=== PATIENT | female | born 1945 | race Caucasian/White ===

== ENCOUNTER → 2023-07-19 11:15 | Outpatient (CLI) | payer MEDICARE, SELFPAY ==
[2023-07-19 12:03] LABS: Add Manual Diff / Slide Review NO; Basophils Absolute Auto 0 /uL (0-100); Basophils Percent Auto 0.3 % (0-2); Eosinophils Absolute Auto 0 /uL (0-450); Eosinophils Percent Auto 0.5 % (2-4); Hematocrit 45.1 % (36-46); Hemoglobin 15.4 g/dL (12.0-16.0); Lymphocytes Absolute Auto 1700 /uL (1100-4500); Lymphocytes Percent Auto 21.5 % (25-40); Mean Corpuscular HGB Conc 34.1 % (30-36); Mean Corpuscular Hemoglobin 32.7 PG (26-34); Mean Corpuscular Volume 95.9 fL (80-100); Monocytes Absolute Auto 800 /uL (0-900); Monocytes Percent Auto 9.8 % (3-14); Neutrophils Absolute Auto 5200 /uL (1500-7000); Neutrophils Percent Auto 67.9 % (50-75); Platelet Count 230 X10^3/uL (150-400); Red Cell Distribution Width 14.3 % (11.6-14.8); White Blood Cell Count 7.7 X10^3/uL (4.5-11.0)
[2023-07-19 12:19] LABS: Alanine Aminotransferase 18 IU/L (<35); Albumin Globulin Ratio 1.4 (1.0-2.8); Alkaline Phosphatase 100 U/L (38-126); Aspartate Aminotransferase 28 IU/L (14-36); BUN Creatinine Ratio 35.2 (6-22); Bilirubin Total 0.9 mg/dL (0.2-1.3); Blood Urea Nitrogen 19 mg/dL (7-17); Calcium 8.2 mg/dL (8.4-10.2); Carbon Dioxide 26 mmol/L (22-32); Chloride 109 mmol/L (98-107); Estimated Glomerular Filt Rate > 60 mL/min (>60); Globulin 2.8 g/dL (1.7-4.1); Glucose 94 mg/dL (80-110); HEMOLYSIS < 15 (0-50); Potassium 3.9 mmol/L (3.4-5.1); Sodium 139 mmol/L (137-145); Total Protein 6.8 g/dL (6.3-8.2)
[2023-07-19 12:20] LABS: HEMOLYSIS < 15 (0-50); Iron 125 ug/dL (37-170)
[2023-07-19 12:31] LABS: Percent Iron Saturation 34 % (15-50); Total Iron Binding Capacity 372 ug/dL (265-497); Transferrin 292 mg/dL (206-381)
[2023-07-19 12:38] LABS: Free T4, Direct Thyroxine 1.16 ng/dL (0.78-2.19)
[2023-07-19 12:52] LABS: Thyroid Stimulating Hormone 1.37 uIU/mL (0.47-4.68)
[2023-07-19 12:55] LABS: Ferritin 69 ng/mL (11-264)
[2023-07-19 13:08] LABS: Hep C Virus Ab w/Reflex Quant NEGATIVE s/c (NEGATIVE)
[2023-07-19 18:27] LABS: Creatinine Urine Random 81.59 mg/dL
== END ==
PROVIDERS: PCP Nurse Practitioner; Referring Provider Nurse Practitioner; Visit Provider Nurse Practitioner
DX: Z13.1 Encounter for screening for diabetes mellitus (principal); E83.119 Hemochromatosis, unspecified; E78.5 Hyperlipidemia, unspecified; Z13.220 Encounter for screening for lipoid disorders; Z13.6 Encounter for screening for cardiovascular disorders; Z11.59 Encounter for screening for other viral diseases; M81.0 Age-related osteoporosis without current pathological fracture
CPT/HCPCS: 36415; 80053; 82043; 82570; 82728; 83540; 83550; 84439; 84443; 84481; 85025; 86803

== ENCOUNTER → 2023-07-21 14:51 | Outpatient (CLI) | payer MEDICARE, SELFPAY ==
--- NOTE | 2023-07-21 14:53 | DI.MG.S_ITS ---
BILATERAL DIGITAL SCREENING MAMMOGRAM 3D/2D WITH CAD: 07/21/2023 CLINICAL: Baseline exam. Routine screening. Family hsitory of Breast cancer. No prior exams were available for comparison. Both breasts are heterogeneously dense, which may obscure small masses (category c / 51-75% glandular tissue). Current study was also evaluated with a Computer Aided Detection (CAD) system. There are benign vascular calcifications in both breasts. No significant masses, calcifications, or other findings are seen in either breast. IMPRESSION: BENIGN There is no mammographic evidence of malignancy. A 1 year screening mammogram is recommended. Based on the Tyrer Cuzick model (a risk assessment model) the patient's lifetime risk is 7.1% and her 10 year risk is 0.0%. According to the ACR, ACS, and NCCN guidelines, an annual breast MRI exam along with mammogram is recommended if the patient's lifetime risk is 20% or greater. This exam was interpreted at Station ID: [id number]. NOTE: For mammograms, a report in lay terms will be sent to the patient. Approximately 15% of breast malignancies will not be visualized mammographically. In the management of a palpable breast mass, a negative mammogram must not discourage biopsy of a clinically suspicious lesion. Electronically Signed By: Farhad [email or web address]:07/21/2023 16:02:09 letter sent: Normal Exam ACR BI-RADS Category 2: Benign Finding(s) [id number]
== END ==
PROVIDERS: PCP Nurse Practitioner; Referring Provider Nurse Practitioner; Visit Provider Nurse Practitioner
DX: Z12.31 Encounter for screening mammogram for malignant neoplasm of breast (principal); Z80.3 Family history of malignant neoplasm of breast; R92.333 Mammographic heterogeneous density, bilateral breasts
CPT/HCPCS: 77063; 77067

== ENCOUNTER → 2023-08-10 15:01 | Outpatient (CLI) | payer MEDICARE, OTHER, SELFPAY ==
--- NOTE | 2023-08-10 15:30 | DI.RAD.S_ITS ---
PROCEDURE: XR LUMBAR SPINE 2-3V INDICATIONS: HIP PAIN TECHNIQUE: 3 views of the lumbar spine were acquired. COMPARISON: None. FINDINGS: Bones: 5 [id number]-[id number]-fldkjpt vertebrae are present. Lumbar levoconvex scoliosis. Grade 1 anterolisthesis of L4 on L5. No vertebral body compression fractures. No suspicious bony lesions. Multilevel disc height loss, endplate sclerosis and osteophytosis. Multilevel facet arthropathy. Soft tissues: Overlying bowel gas pattern is normal. No suspicious soft tissue calcifications. IMPRESSION: No acute bony abnormality Approved by: Barbara Amador M.D.,Ph.D. on 08/12/2023 at 13:22 . Multilevel degenerative changes. Grade 1 anterolisthesis of L4 on L5.
--- NOTE | 2023-08-10 15:30 | DI.RAD.S_ITS ---
PROCEDURE: XR SACRUM COCCYX MIN 2V INDICATIONS: HIP PAIN TECHNIQUE: 3 views of the sacrum and coccyx acquired. COMPARISON: None. FINDINGS: Bones: No fractures or dislocations. Degenerative disc disease in visualized lower lumbar spine is seen. Grade 1 anterolisthesis of L4 on L5 is noted. Bilateral sacroiliac joint osteoarthritic changes are seen. No ankylosis or erosion. No suspicious bony lesions. Soft tissues: Visualized bowel gas pattern is normal. No suspicious soft tissue densities. IMPRESSION: 1. No acute sacral or coccygeal fracture. Bilateral sacroiliac joint osteoarthritis, no bony erosion or ankylosis. 2. 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 Grade 1 anterolisthesis of L4 on L5. No acute vertebral body compression fracture. Dictated by: Jaswant Denton M.D. on 08/10/2023 at 18:07 Approved by: Jaswant Denton M.D. on 08/10/2023 at 18:08
[2023-08-10 17:33] LABS: Calcium 9.5 mg/dL (8.4-10.2)
== END ==
LOC: RAD 15:02 → LAB 15:04
PROVIDERS: PCP Nurse Practitioner; Referring Provider Physician Assistant; Visit Provider Physician Assistant
DX: E83.51 Hypocalcemia (principal)
CPT/HCPCS: 36415; 72100; 72220; 82310

== ENCOUNTER → 2024-07-23 08:19 | Outpatient (CLI) | payer MEDICARE, SELFPAY ==
--- NOTE | 2024-07-23 08:22 | DI.MG.S_ITS ---
MM screening mammo BI: 07/23/2024. BI-RADS: 2 CLINICAL: 79-year old female for bilateral screening mammogram. Tyrer-Cuzick lifetime risk of 4.6%. Current reported family history of breast cancer: mother. PRIOR EXAMS 07/21/2023. MAMMOGRAPHY TECHNIQUE: 2D and 3D (tomosynthesis) digital mammographic views obtained, with additional images as needed for full coverage. Current study was also evaluated with a Computer Aided Detection (CAD) system. DENSITY C. The breasts are heterogeneously dense, which may obscure small masses. MAMMOGRAPHY FINDINGS Bilateral: Benign-appearing calcifications noted. Typically-benign vascular calcifications also noted. No significant change from comparison. IMPRESSION: * No evidence of malignancy with benign findings. RECOMMENDATIONS Bilateral * Annual screening mammography. OVERALL ASSESSMENT CATEGORY BI-RADS-2: Benign. The [employer] recommends annual screening mammography beginning at age 40 for women with average risk of breast cancer. ELECTRONICALLY SIGNED: Sheree Caruso M.D. on 07/23/2024 at 04:20:54 PM PT Interpreting Station ID: [id number]
[2024-07-23 10:03] LABS: Add Manual Diff / Slide Review NO; Basophils Absolute Auto 0 /uL (0-100); Basophils Percent Auto 0.5 % (0-2); Eosinophils Absolute Auto 200 /uL (0-450); Eosinophils Percent Auto 2.3 % (2-4); Hematocrit 47.2 % (36-46); Hemoglobin 16.3 g/dL (12.0-16.0); Lymphocytes Absolute Auto 1800 /uL (1100-4500); Lymphocytes Percent Auto 25.2 % (25-40); Mean Corpuscular HGB Conc 34.5 % (30-36); Mean Corpuscular Volume 95.6 fL (80-100); Monocytes Absolute Auto 900 /uL (0-900); Monocytes Percent Auto 12.7 % (3-14); Neutrophils Absolute Auto 4100 /uL (1500-7000); Neutrophils Percent Auto 59.3 % (50-75); Platelet Count 182 X10^3/uL (150-400); Red Blood Cell Count 4.94 X10^6/uL (4.0-5.2); Red Cell Distribution Width 13.7 % (11.6-14.8)
[2024-07-23 10:29] LABS: Alanine Aminotransferase 19 IU/L (<35); Albumin 4.3 g/dL (3.5-5.0); Albumin Globulin Ratio 1.3 (1.0-2.8); Alkaline Phosphatase 111 U/L (38-126); Aspartate Aminotransferase 30 IU/L (14-36); BUN Creatinine Ratio 37.3 (6-22); Bilirubin Total 1.3 mg/dL (0.2-1.3); Blood Urea Nitrogen 25 mg/dL (7-17); Calcium 9.5 mg/dL (8.4-10.2); Carbon Dioxide 26 mmol/L (22-32); Chloride 105 mmol/L (98-107); Cholesterol 219 mg/dL (140-199); Estimated Glomerular Filt Rate > 60 mL/min (>60); Globulin 3.2 g/dL (1.7-4.1); Glucose 102 mg/dL (70-99); HDL Cholesterol 46 mg/dL (40-60); HEMOLYSIS < 15 (0-50); LDL Cholesterol Calculated 154 mg/dL (<100); Potassium 4.3 mmol/L (3.4-5.1); Sodium 139 mmol/L (137-145); Total Protein 7.5 g/dL (6.3-8.2); Triglycerides 96 mg/dL (35-150)
[2024-07-23 10:46] LABS: Vitamin D 25 Hydroxy (D3) 40.5 ng/mL (30.0-100.0)
== END ==
PROVIDERS: PCP Registered Nurse Diabetes Educator; Referring Provider Registered Nurse Diabetes Educator; Visit Provider Registered Nurse Diabetes Educator
DX: Z12.31 Encounter for screening mammogram for malignant neoplasm of breast (principal); E78.5 Hyperlipidemia, unspecified; M81.0 Age-related osteoporosis without current pathological fracture; Z80.3 Family history of malignant neoplasm of breast; R92.333 Mammographic heterogeneous density, bilateral breasts; E83.119 Hemochromatosis, unspecified; E78.2 Mixed hyperlipidemia; Z20.822 Contact with and (suspected) exposure to COVID-19
CPT/HCPCS: 36415; 77063; 77067; 80053; 80061; 82306; 85025; 86769

== ENCOUNTER → 2024-07-25 11:35 | Outpatient (CLI) | payer MEDICARE, SELFPAY ==
--- NOTE | 2024-07-25 11:37 | DI.RAD.S_ITS ---
PROCEDURE: XR DEXA AXIAL SKELETON INDICATIONS: reeval COMPARISON: None. FINDINGS: Lumbar Spine: Bone mineral density 0.72 to g/cm2, T score -2.7. Left Femoral Neck: Bone mineral density 0.490 g/cm2, T score -3.2. Left Hip: Bone mineral density 0.646 g/cm2, T score -2.4. Fracture Risk Calculation (when applicable): 10-year fracture risk of a major osteoporotic fracture 25 percent and of a hip fracture 11 percent. (T score greater or equal to -1.0 to: NORMAL) (T score from -1.1 to -2.4: OSTEOPENIA) (T score less than or equal to -2.5: OSTEOPOROSIS) IMPRESSION: Osteoporosis. Follow-up guidelines as follows: Osteoporosis: Consider a repeat DEXA and Vertebral Fracture Assessment (VFA) exam in 2 years or sooner if medically necessary, to reassess this patient's status. Osteopenia: Consider a repeat DEXA in 2-3 years to reassess this patient's status, or if there is a new clinical indication. Normal: Consider a repeat DEXA in 5 years or sooner, or if there is a new clinical indication. All treatment decisions require clinical judgment and consideration of individual patient factors, including patient preferences, comorbidities, previous drug use, risk factors not captured in the FRAX model (e.g., frailty, falls, vitamin D deficiency, increased bone turnover, interval significant decline in bone density ) and possible under- or over-estimation of fracture risk by FRAX. In addition, the NOF Guide recommends that FDA-approved medical therapies be considered in postmenopausal women and men age >= 50 years with a: * Hip or vertebral (clinical or morphometric) fracture * T-score of <=-2.5 at the spine or hip * Ten-year fracture probability by FRAX of >= 3% for hip fracture or >=20% for major osteoporotic fracture. Dictated by: Jaswant Denton M.D. on 07/25/2024 at 20:34 Approved by: Jaswant Denton M.D. on 07/25/2024 at 20:42
== END ==
LOC: RAD 11:36
PROVIDERS: PCP Registered Nurse Diabetes Educator; Referring Provider Registered Nurse Diabetes Educator; Visit Provider Registered Nurse Diabetes Educator
DX: M81.0 Age-related osteoporosis without current pathological fracture (principal)
CPT/HCPCS: 77080

== ENCOUNTER → 2024-07-25 12:26 | Outpatient (CLI) | payer MEDICARE, SELFPAY | PROVIDERS: PCP Registered Nurse Diabetes Educator; Visit Provider Registered Nurse | DX: R30.9 Painful micturition, unspecified (principal) | CPT/HCPCS: 87077; 87086 ==

== ENCOUNTER → 2024-08-03 16:51 | Outpatient (CLI) | payer MEDICARE, SELFPAY ==
[2024-08-03 17:33] LABS: Bilirubin Urine UA NEGATIVE (NEGATIVE); Color Urine UA YELLOW; Glucose Urine UA NEGATIVE (Negative); Ketones Urine UA NEGATIVE (NEGATIVE); Leukocyte Esterase Urine UA 3+ (NEGATIVE); Nitrite Urine UA NEGATIVE (Negative); Occult Blood Urine UA 1+ (Negative); Protein Urine UA NEGATIVE (Negative); Specific Gravity Urine UA <=1.005 (1.000-1.035); Urobilinogen Urine UA 0.2 E.U./dL (0.2)
[2024-08-03 17:35] LABS: Appearance Urine UA CLOUDY
[2024-08-03 17:50] LABS: Bacteria Urine Many (>30); Culture Indicated Urine Specimen Cultured; RBC Urine 0-1/HPF (0-5/HPF); Squamous Epithelial Cell Urine 0-1 /HPF (0-5/HPF); Urine Volume 10mL (spun); WBC Urine 30-100/HPF (0-5/HPF)
== END ==
PROVIDERS: Registered Nurse Diabetes Educator; PCP Internal Medicine Endocrinology, Diabetes & Metabolism; Referring Provider Internal Medicine Endocrinology, Diabetes & Metabolism; Visit Provider Internal Medicine Endocrinology, Diabetes & Metabolism
DX: N39.0 Urinary tract infection, site not specified (principal)
CPT/HCPCS: 81001; 87077; 87086; 87186

== ENCOUNTER → 2024-08-15 14:06 | Outpatient (CLI) | payer MEDICARE, SELFPAY | PROVIDERS: PCP Registered Nurse Diabetes Educator; Visit Provider Physician Assistant Medical | DX: R30.0 Dysuria (principal) | CPT/HCPCS: 87077; 87086 ==